=== PATIENT | male | born 1965 | race Caucasian/White ===

== ENCOUNTER 2017-02-21 08:58 | Day surgery (SDC) | payer MEDICARE ==
[~2017-02-21 08:58] MED LIST: 1/2 NORMAL SALINE 1,000 ML IV PRN; CEFAZOLIN 1 GM/D5W RTU 1 GM/50 ML RTUPB IV PRN; DIAZEPAM 5 MG TABLET PO PRN; OXYCODONE-ACETAMINOPHEN 5-325 MG TABLET PO PRN
[2017-02-21 09:26] LABS: HEMATOCRIT 46.6 % (37.9-51.0); HEMOGLOBIN 15.4 g/dL (13.5-17.0); HGB HCT DIFFERENCE -0.4; MEAN CORPUSCULAR HEMOGLOBIN 30.8 pg (27.0-33.4); MEAN CORPUSCULAR HGB CONC 33.1 g/dL (32.0-36.0); MEAN CORPUSCULAR VOLUME 93 fl (80-97); RED CELL DISTRIBUTION WIDTH 13.9 % (11.5-14.0); WHITE BLOOD COUNT 11.1 10^3/uL (4.0-10.5)
--- NOTE | 2017-02-21 10:03 | RADIOLOGY REPORT (SQ) ---
EXAM DESCRIPTION: CHEST SINGLE VIEW COMPLETED DATE/TIME: 02/21/2017 9:26 am REASON FOR STUDY: preop COMPARISON: None. EXAM PARAMETERS: NUMBER OF VIEWS: One view. TECHNIQUE: Single frontal radiographic view of the chest acquired. RADIATION DOSE: NA LIMITATIONS: None. FINDINGS: LUNGS AND PLEURA: No opacities, masses or pneumothorax. No pleural effusion. MEDIASTINUM AND HILAR STRUCTURES: No masses. Contour normal. HEART AND VASCULAR STRUCTURES: Heart normal in size. Normal vasculature. BONES: No acute findings. HARDWARE: None in the chest. OTHER: No other significant finding. IMPRESSION: NO ACUTE RADIOGRAPHIC FINDING IN THE CHEST. TECHNICAL DOCUMENTATION: JOB ID: [id number]
[2017-02-21 10:35] LABS: ANION GAP 11 (5-19); BLOOD UREA NITROGEN 24 mg/dL (7-20); CALCIUM 9.6 mg/dL (8.4-10.2); CARBON DIOXIDE 25 mmol/L (22-30); CHLORIDE 106 mmol/L (98-107); CREATININE RESULT 0.79 mg/dL (0.52-1.25); GLUCOSE 125 mg/dL (75-110); POTASSIUM 4.2 mmol/L (3.6-5.0); SODIUM 142.2 mmol/L (137-145)
[2017-02-21] MEDS ORDERED: LIDOCAINE 0.5% INJ-PF (5 MG/ML) 50 ML SDV ONE (11:07)
[2017-02-21] MEDS ORDERED: FENTANYL CITRATE INJ/PF 100 MCG/2 ML AMPUL ONE (11:08)
[2017-02-21] MEDS ORDERED: MIDAZOLAM 2 MG/2 ML INJ ONE (11:08)
[2017-02-21] MEDS ORDERED: BACITRACIN INJ 50,000 UNIT VIAL IR PRN ×2 (11:24→12:00)
--- NOTE | 2017-02-21 12:49 | PDOC DISCHARGE SUMMARY ---
Discharge Summary (SDC) - Discharge Final Diagnosis: Patient presents for insertion of a port. He needs frequent IV infusions because of his multiple medical problems including polyneuropathy which is with its attendant treatment. Date of Surgery: 02/21/17 Discharge Date: 02/21/17 Condition: Good Treatment or Instructions: 1. Discharge patient per ambulatory criteria. 2. Continue medications per medication reconciliation form. 3. Follow-up in office by appointment in about 1 week. 4. Dressings down to the office.. 5. Activities, diet, may remain as usual. Discharge Diet: As Tolerated Respiratory Treatments at Home: Deep Breathing/Coughing Discharge Activity: Activity As Tolerated
--- NOTE | 2017-02-21 12:53 | Operative Report ---
Operative Report DATE OF SURGERY: 02/21/17 PREOPERATIVE DIAGNOSIS: 1. Polyneuropathy. 2. Multiple comorbidities. POSTOPERATIVE DIAGNOSIS: 1. Polyneuropathy. Post insertion of Port-A-Cath. 2. Multiple comorbidities. OPERATION: 1 ultrasound evaluation of the right internal jugular vein. 2. Insertion of Port-A-Cath via real-time axis of the right internal jugular vein, under ultrasound guidance. 3. Angiogram interpretation. SURGEON: KARO GE [employer]OSPHORIC ACID OPERATOR: None ANESTHESIA: Moderate Sedation TISSUE REMOVED OR ALTERED: Not applicable. COMPLICATIONS: None ESTIMATED BLOOD LOSS: 5 mL. INTRAOPERATIVE FINDINGS: Satisfactory right internal jugular vein, estimated to be 1.5 cm in diameter. Satisfactory access. Satisfactory support of a Port-A- Cath. Tip of the catheter just done in the right atrium. Easy egress of blood and ingress of heparinized solution. PROCEDURE: After obtaining informed consent, the patient was taken to the lab and positioned supine. The [right] neck and chest were prepared with chlorhexidine and draped out with sterile linen. After the " universal timeout", in which it was verified that the patient continued to receive antibiotic, the procedure commenced. A steriley sheathed ultrasound probe was used to evaluate the [ right] internal jugular vein. Local anesthesia was infiltrated adjacent to the probe. Access into the [right] internal jugular vein was obtained using a micropuncture needle, followed by micropuncture wire and then a micropuncture catheter. This was followed by introduction of a 0.035 guidewire the tip of which was placed down into the inferior vena cava . The port sites was marked , locally anesthetized and incision made. Dissection now proceeded to the deep subcutaneous subcutaneous tissues so that a pocket for the port was made. Meticulous hemostasis was secured and the catheter was tunneled between the 2 incisions. Proximally, the catheter was now positioned using a peel-away sheath. Distally the catheter was tailored to an appropriate length and then mated to the port using the contained fixating device. The port was now placed in the pocket and the catheter optimally positioned. The port was accessed with a Oconnell needle and an angiogram done under digital subtraction. The findings as dictated. With adequate and satisfactory positioning, both lumens of the chamber were irrigated with heparinized solution. The wounds were now closed using interrupted 3-0 PDS to the subcutaneous tissues and a continuous subcuticular suture of 4-0 Monocryl to the skin. These are reinforced with Steri-Strips over benzoin and then dressings applied. Time: 1.3 Minute. Dose: 5.9 Mc torrez Contrast: 5 mls. Isovue 300. Copies of the dictated operative report for Dr. Karo Cartagena MD.
--- NOTE | 2017-02-21 13:22 | RADIOLOGY REPORT (SQ) ---
EXAM DESCRIPTION: CHEST SINGLE VIEW COMPLETED DATE/TIME: 02/21/2017 1:03 pm REASON FOR STUDY: s/p port placement COMPARISON: 02/21/2017. EXAM PARAMETERS: NUMBER OF VIEWS: One view. TECHNIQUE: Single frontal radiographic view of the chest acquired. RADIATION DOSE: NA LIMITATIONS: None. FINDINGS: LUNGS AND PLEURA: No opacities, masses or pneumothorax. No pleural effusion. MEDIASTINUM AND HILAR STRUCTURES: No masses. Contour normal. HEART AND VASCULAR STRUCTURES: Heart normal in size. Normal vasculature. BONES: No acute findings. HARDWARE: Vascular access port. Tip at the level of the superior vena cava. OTHER: No other significant finding. IMPRESSION: NO PNEUMOTHORAX OR OTHER SIGNIFICANT FINDINGS AFTER PORT PLACEMENT. TECHNICAL DOCUMENTATION: JOB ID: [id number]
[2017-02-21 13:53] VITALS: BP 113/71
--- NOTE | 2017-02-22 08:41 | RADIOLOGY REPORT (SQ) ---
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 TECHNIQUE: Intra-operative images acquired during surgical procedure to evaluate progress. NUMBER OF IMAGES: Cine fluoroscopic images. LIMITATIONS: None. FINDINGS: Intra procedural imaging and fluoro during placement of a central venous catheter. Please see the operative report for further details IMPRESSION: Intra procedural imaging and fluoro COMMENT: Quality ID [id number]: Final reports for procedures using fluoroscopy that document radiation exp osure indices, or exposure time and number of fluorographic images (if radiation exposure indices are not available) Please consult full operative report of the attending physician for description of the procedure. TECHNICAL DOCUMENTATION: JOB ID: [id number] [employer]- All Rights Reserved
== END 2017-02-21 13:40 | disposition home or self-care (01) ==
LOC: CCL 08:58
PROVIDERS: ATTEND Surgery
PROC: 05HM33Z Insertion of Infusion Device into Right Internal Jugular Vein, Percutaneous Approach (ICD-10-PCS; principal; 2017-02-21)
DX: G61.81 Chronic inflammatory demyelinating polyneuritis (principal); D75.1 Secondary polycythemia; E11.40 Type 2 diabetes mellitus with diabetic neuropathy, unspecified; M79.7 Fibromyalgia; F40.240 Claustrophobia; F41.9 Anxiety disorder, unspecified; F17.210 Nicotine dependence, cigarettes, uncomplicated; Z79.899 Other long term (current) drug therapy; Z79.84 Long term (current) use of oral hypoglycemic drugs
CPT/HCPCS: 36415; 85027; 80048; 36561; 76937; 77001; 71010; C1788; C1752; J2250; J3490 ×2; J0690; A9270 ×2; J3010; J1644

== ENCOUNTER 2017-02-22 07:54 | Outpatient (CLI) | payer MEDICARE ==
[~2017-02-22 07:54] MED LIST changes: -1/2 NORMAL SALINE 1,000 ML IV PRN; +ACETAMINOPHEN 325 MG TABLET PO PRN; -CEFAZOLIN 1 GM/D5W RTU 1 GM/50 ML RTUPB IV PRN; +DEXTROSE 5%-WATER 250 ML IV PRN; -DIAZEPAM 5 MG TABLET PO PRN; +DIPHENHYDRAMINE HCL 50 MG/ML VIAL IV PRN; +IMMUNE GLOB GAM CAPRYLATE IV PRN; -OXYCODONE-ACETAMINOPHEN 5-325 MG TABLET PO PRN; +[UNRECOGNIZED DRUG - OTHER] IV PRN
[2017-02-22 09:55] VITALS: BP 108/72
[2017-02-23] MEDS ORDERED: [UNRECOGNIZED DRUG - OTHER] IV PRN (05:00)
[2017-02-23] MEDS ORDERED: IMMUNE GLOB GAM CAPRYLATE IV PRN (05:00)
[2017-02-23] MEDS ORDERED: DEXTROSE 5%-WATER 250 ML IV PRN (05:00)
[2017-02-23] MEDS ORDERED: DIPHENHYDRAMINE HCL 50 MG/ML VIAL IV PRN (05:00)
[2017-02-23] MEDS ORDERED: ACETAMINOPHEN 325 MG TABLET PO PRN (05:00)
== END 2017-02-22 14:40 | disposition home or self-care (01) ==
LOC: II 07:54 → 5TH 08:00 → II 14:40
PROVIDERS: ATTEND Internal Medicine
PROC: 30233S1 Transfusion of Nonautologous Globulin into Peripheral Vein, Percutaneous Approach (ICD-10-PCS; principal; 2017-02-22)
DX: Z51.12 Encounter for antineoplastic immunotherapy (principal); G61.81 Chronic inflammatory demyelinating polyneuritis
CPT/HCPCS: 96365; 96366; 96374; 96360; J1561 ×2; A9270 ×2; J1200; 96361; 96375; J3490

== ENCOUNTER 2017-02-23 08:14 | Outpatient (CLI) | payer MEDICARE ==
[2017-02-23 08:43] VITALS: BP 126/75
== END 2017-02-23 13:17 | disposition home or self-care (01) ==
LOC: 5TH 08:14 → II 08:14
PROVIDERS: ATTEND Internal Medicine
PROC: 30233S1 Transfusion of Nonautologous Globulin into Peripheral Vein, Percutaneous Approach (ICD-10-PCS; principal; 2017-02-23)
DX: Z51.12 Encounter for antineoplastic immunotherapy (principal); G61.81 Chronic inflammatory demyelinating polyneuritis
CPT/HCPCS: 96365; 96366; 96374; J1561 ×2; A9270 ×2; J1200; 96375; J3490

== ENCOUNTER 2017-03-15 08:41 | Outpatient (CLI) | payer MEDICARE ==
[2017-03-15 09:48] VITALS: BP 122/76
== END 2017-03-15 14:26 | disposition home or self-care (01) ==
LOC: II 08:41 → 5TH 08:41 → II 14:26
PROVIDERS: ATTEND Internal Medicine
PROC: 30233S1 Transfusion of Nonautologous Globulin into Peripheral Vein, Percutaneous Approach (ICD-10-PCS; principal; 2017-03-15)
PROC: 3E033GC Introduction of Other Therapeutic Substance into Peripheral Vein, Percutaneous Approach (ICD-10-PCS; 2017-03-15)
DX: Z51.12 Encounter for antineoplastic immunotherapy (principal); G61.81 Chronic inflammatory demyelinating polyneuritis
CPT/HCPCS: 96365; 96366; 96375; J1561 ×2; A9270 ×2; J1200; 96367; J3490

== ENCOUNTER 2017-04-06 08:12 | Outpatient (CLI) | payer MEDICARE ==
[2017-04-06 08:49] VITALS: BP 107/79
== END 2017-04-06 13:07 | disposition home or self-care (01) ==
LOC: II 08:12 → 5TH 08:14 → II 13:07
PROVIDERS: ATTEND Internal Medicine
PROC: 30243S1 Transfusion of Nonautologous Globulin into Central Vein, Percutaneous Approach (ICD-10-PCS; principal; 2017-04-06)
PROC: 3E043GC Introduction of Other Therapeutic Substance into Central Vein, Percutaneous Approach (ICD-10-PCS; 2017-04-06)
DX: Z51.12 Encounter for antineoplastic immunotherapy (principal); G61.81 Chronic inflammatory demyelinating polyneuritis
CPT/HCPCS: 96367; 96375; J1561 ×2; J1200; A9270; 96365; 96366; J3490

== ENCOUNTER 2017-04-27 07:57 | Outpatient (CLI) | payer MEDICARE ==
[~2017-04-27 07:57] MED LIST changes: -IMMUNE GLOB GAM CAPRYLATE IV PRN; +IMMUNE GLOBULIN IV PRN; +[UNRECOGNIZED DRUG - OTHER] IV PRN; -[UNRECOGNIZED DRUG - OTHER] IV PRN
[2017-04-27 08:57] VITALS: BP 100/50
== END 2017-04-27 13:00 | disposition home or self-care (01) ==
LOC: II 07:57 → 5TH 07:58 → II 13:00
PROVIDERS: ATTEND Internal Medicine
PROC: 30243S1 Transfusion of Nonautologous Globulin into Central Vein, Percutaneous Approach (ICD-10-PCS; principal; 2017-04-27)
PROC: 3E043GC Introduction of Other Therapeutic Substance into Central Vein, Percutaneous Approach (ICD-10-PCS; 2017-04-27)
DX: Z51.12 Encounter for antineoplastic immunotherapy (principal); G61.81 Chronic inflammatory demyelinating polyneuritis
CPT/HCPCS: 96365; 96366; 96374; 96523; J1561 ×2; A9270 ×2; J1200; 96375; J3490

== ENCOUNTER 2017-06-08 07:54 | Outpatient (CLI) | payer MEDICARE ==
[~2017-06-08 07:54] MED LIST changes: +IMMUNE GLOB GAM CAPRYLATE IV PRN; -IMMUNE GLOBULIN IV PRN; +[UNRECOGNIZED DRUG - OTHER] IV PRN; -[UNRECOGNIZED DRUG - OTHER] IV PRN
[2017-06-08 08:45] VITALS: BP 101/75
== END 2017-06-08 13:17 | disposition home or self-care (01) ==
LOC: II 07:54 → 5TH 07:56 → II 13:17
PROVIDERS: ATTEND Internal Medicine
PROC: 30243S1 Transfusion of Nonautologous Globulin into Central Vein, Percutaneous Approach (ICD-10-PCS; principal; 2017-06-08)
PROC: 3E043GC Introduction of Other Therapeutic Substance into Central Vein, Percutaneous Approach (ICD-10-PCS; 2017-06-08)
DX: Z51.12 Encounter for antineoplastic immunotherapy (principal); G61.81 Chronic inflammatory demyelinating polyneuritis
CPT/HCPCS: 96367; 96375; J1561 ×2; A9270 ×2; J1200; 96365; 96366; J3490

== ENCOUNTER 2017-06-29 08:37 | Outpatient (CLI) | payer MEDICARE ==
[2017-06-29 09:05] VITALS: BP 118/71
== END 2017-06-29 13:04 | disposition home or self-care (01) ==
LOC: II 08:37 → 5TH 08:38 → II 13:04
PROVIDERS: ATTEND Internal Medicine
PROC: 30243S1 Transfusion of Nonautologous Globulin into Central Vein, Percutaneous Approach (ICD-10-PCS; principal; 2017-06-29)
PROC: 3E043GC Introduction of Other Therapeutic Substance into Central Vein, Percutaneous Approach (ICD-10-PCS; 2017-06-29)
DX: Z51.12 Encounter for antineoplastic immunotherapy (principal); G61.81 Chronic inflammatory demyelinating polyneuritis
CPT/HCPCS: 96365; 96366; 96375; J1561 ×2; A9270 ×2; J1200; 96374; 96523; J3490

== ENCOUNTER 2017-08-10 10:07 | Outpatient (CLI) | payer MEDICARE, OTHER ==
[2017-08-10 10:25] VITALS: BP 141/79
== END 2017-08-10 14:37 | disposition home or self-care (01) ==
LOC: II 10:07 → 5TH 10:23 → II 14:37
PROVIDERS: ATTEND Internal Medicine
PROC: 30243S1 Transfusion of Nonautologous Globulin into Central Vein, Percutaneous Approach (ICD-10-PCS; principal; 2017-08-10)
PROC: 3E043GC Introduction of Other Therapeutic Substance into Central Vein, Percutaneous Approach (ICD-10-PCS; 2017-08-10)
DX: Z51.12 Encounter for antineoplastic immunotherapy (principal); G61.81 Chronic inflammatory demyelinating polyneuritis
CPT/HCPCS: 96367; 96375; J1561 ×2; A9270 ×2; J1200; 96365; 96366; J3490

== ENCOUNTER 2017-08-31 08:55 | Outpatient (CLI) | payer MEDICARE, OTHER ==
[2017-08-31 09:24] VITALS: BP 120/61
== END 2017-08-31 13:28 | disposition home or self-care (01) ==
LOC: 5TH 08:55 → II 08:55
PROVIDERS: ATTEND Internal Medicine
PROC: 30243S1 Transfusion of Nonautologous Globulin into Central Vein, Percutaneous Approach (ICD-10-PCS; principal; 2017-08-31)
PROC: 3E043GC Introduction of Other Therapeutic Substance into Central Vein, Percutaneous Approach (ICD-10-PCS; 2017-08-31)
DX: Z51.12 Encounter for antineoplastic immunotherapy (principal); G61.81 Chronic inflammatory demyelinating polyneuritis
CPT/HCPCS: 96365; 96366; 96374; 96523; J1561 ×2; A9270 ×2; J1200; 96375; J3490

== ENCOUNTER 2017-09-21 08:34 | Outpatient (CLI) | payer MEDICARE, OTHER ==
[2017-09-21 09:27] VITALS: BP 110/64
== END 2017-09-21 14:15 | disposition home or self-care (01) ==
LOC: II 08:34 → 5TH 08:35 → II 14:15
PROVIDERS: ATTEND Internal Medicine
PROC: 30243S1 Transfusion of Nonautologous Globulin into Central Vein, Percutaneous Approach (ICD-10-PCS; principal; 2017-09-21)
PROC: 3E043GC Introduction of Other Therapeutic Substance into Central Vein, Percutaneous Approach (ICD-10-PCS; 2017-09-21)
DX: Z51.12 Encounter for antineoplastic immunotherapy (principal); G61.81 Chronic inflammatory demyelinating polyneuritis
CPT/HCPCS: 96365; 96366; 96375; J1561 ×2; A9270 ×2; J1200; 96367; J3490

== ENCOUNTER 2017-10-12 09:13 | Outpatient (CLI) | payer MEDICARE, OTHER ==
[2017-10-12 09:25] VITALS: BP 124/74
== END 2017-10-12 12:30 | disposition home or self-care (01) ==
LOC: II 09:13 → 5TH 09:16 → II 12:30
PROVIDERS: ATTEND Hospitalist
PROC: 30243S1 Transfusion of Nonautologous Globulin into Central Vein, Percutaneous Approach (ICD-10-PCS; principal; 2017-10-12)
PROC: 3E043GC Introduction of Other Therapeutic Substance into Central Vein, Percutaneous Approach (ICD-10-PCS; 2017-10-12)
DX: Z51.12 Encounter for antineoplastic immunotherapy (principal); G61.81 Chronic inflammatory demyelinating polyneuritis
CPT/HCPCS: 96365; 96366; 96375; J1561 ×2; A9270 ×2; J1200; 96374; J3490

== ENCOUNTER → 2017-10-16 | Outpatient (CLI) | payer MEDICARE, OTHER ==
--- NOTE | 2017-10-16 15:20 | RADIOLOGY REPORT (SQ) ---
EXAM DESCRIPTION: CT CERVICAL SPINE WITHOUT COMPLETED DATE/TIME: 10/16/2017 2:38 pm REASON FOR STUDY: CERVICALGIA (M54.2) M54.2 CERVICALGIA COMPARISON: None. TECHNIQUE: Axial images acquired through the cervical spine without intravenous contrast. Images re viewed with lung, soft tissue and bone windows. Reconstructed coronal and sagittal MPR images review ed. Images stored on PACS. All CT scanners at this facility use dose modulation, iterative reconstruction, and/or weight based d osing when appropriate to reduce radiation dose to as low as reasonably achievable (ALARA). [facility]: Dose Right [facility]: CareDose [facility]: Dose Right [facility]: Teradose 4D [facility]: [employer] - [employer] RADIATION DOSE: CT Rad equipment meets quality standard of care and radiation dose reduction techniq ues were employed. CTDIvol: 21.1 mGy. DLP: 540 mGy-cm. mGy. LIMITATIONS: None. FINDINGS: ALIGNMENT: Anatomic. MINERALIZATION: Normal. VERTEBRAL BODIES: No fractures or dislocation. DISCS: C5-6 disc space narrowing with small uncovertebral spurs. Mild uncovertebral spurring is also present at C4-5. Calcification along the posterior longitudinal ligament at C5 and C6. This mildly effaces the anterior canal. No critical central stenosis or high-grade foraminal narrowing evident. FACETS, LATERAL MASSES, POSTERIOR ELEMENTS: No fractures. No dislocation. No acute findings. HARDWARE: None in the spine. VISUALIZED RIBS: No fractures. LUNG APICES AND SOFT TISSUES: No significant or acute findings. OTHER: No other significant finding. IMPRESSION: Spondylosis as above. Prominent calcification along the posterior longitudinal ligament at C5-6 causing noncritical central canal narrowing. TECHNICAL DOCUMENTATION: JOB ID: [id number] Quality ID # [id number]: Final reports with documentation of one or more dose reduction techniques (e.g., Au tomated exposure control, adjustment of the mA and/or kV according to patient size, use of iterative reconstruction technique) 2010 [employer]- All Rights Reserved
== END ==
LOC: RAD 14:17
PROVIDERS: ATTEND Physician Assistant
DX: M54.2 Cervicalgia (principal); M48.02 Spinal stenosis, cervical region; M47.892 Other spondylosis, cervical region
CPT/HCPCS: 72125

== ENCOUNTER 2017-11-02 08:18 | Outpatient (CLI) | payer MEDICARE, MEDICAID ==
[2017-11-02 08:43] VITALS: BP 118/72
== END 2017-11-02 13:45 | disposition home or self-care (01) ==
LOC: II 08:18 → 5TH 08:19 → II 13:45
PROVIDERS: ATTEND Hospitalist
PROC: 30243S1 Transfusion of Nonautologous Globulin into Central Vein, Percutaneous Approach (ICD-10-PCS; principal; 2017-11-02)
PROC: 3E043GC Introduction of Other Therapeutic Substance into Central Vein, Percutaneous Approach (ICD-10-PCS; 2017-11-02)
DX: G61.81 Chronic inflammatory demyelinating polyneuritis (principal)
CPT/HCPCS: 96365; 96366; 96374; 96375; J1561 ×2; A9270 ×2; J1200; J3490

== ENCOUNTER 2017-11-23 09:05 | Outpatient (CLI) | payer MEDICAID, MEDICARE ==
[2017-11-23 10:23] VITALS: BP 100/50
== END 2017-11-23 14:33 | disposition home or self-care (01) ==
LOC: 5TH 09:05 → II 09:05
PROVIDERS: ATTEND Orthopaedic Surgery Sports Medicine
PROC: 30243S1 Transfusion of Nonautologous Globulin into Central Vein, Percutaneous Approach (ICD-10-PCS; principal; 2017-11-23)
PROC: 3E043GC Introduction of Other Therapeutic Substance into Central Vein, Percutaneous Approach (ICD-10-PCS; 2017-11-23)
DX: Z51.12 Encounter for antineoplastic immunotherapy (principal); G61.81 Chronic inflammatory demyelinating polyneuritis
CPT/HCPCS: 96365; 96366; 96374; 96375; J1561 ×2; A9270 ×2; J1200; J3490

== ENCOUNTER 2017-12-14 09:14 | Outpatient (CLI) | payer MEDICARE, OTHER ==
[2017-12-14 09:43] VITALS: BP 124/69
== END 2017-12-14 14:06 | disposition home or self-care (01) ==
LOC: II 09:14 → 5TH 09:16 → II 14:06
PROVIDERS: ATTEND Orthopaedic Surgery Sports Medicine
PROC: 30243S1 Transfusion of Nonautologous Globulin into Central Vein, Percutaneous Approach (ICD-10-PCS; principal; 2017-12-14)
PROC: 3E043GC Introduction of Other Therapeutic Substance into Central Vein, Percutaneous Approach (ICD-10-PCS; 2017-12-14)
DX: Z51.12 Encounter for antineoplastic immunotherapy (principal); G61.81 Chronic inflammatory demyelinating polyneuritis
CPT/HCPCS: 96367; 96375; J1561 ×2; A9270 ×2; J1200; 96365; 96366; J3490

== ENCOUNTER 2018-01-04 08:44 | Outpatient (CLI) | payer MEDICARE, OTHER ==
[~2018-01-04 08:44] MED LIST changes: +DIPHENHYDRAMINE HCL 50 MG CAPSULE PO PRN
[2018-01-04 09:16] VITALS: BP 122/69
== END 2018-01-04 13:01 | disposition home or self-care (01) ==
LOC: II 08:44 → 5TH 08:46 → II 13:01
PROVIDERS: ATTEND Orthopaedic Surgery Sports Medicine
PROC: 30243S1 Transfusion of Nonautologous Globulin into Central Vein, Percutaneous Approach (ICD-10-PCS; principal; 2018-01-04)
PROC: 3E043GC Introduction of Other Therapeutic Substance into Central Vein, Percutaneous Approach (ICD-10-PCS; 2018-01-04)
DX: Z51.12 Encounter for antineoplastic immunotherapy (principal); G61.81 Chronic inflammatory demyelinating polyneuritis
CPT/HCPCS: 96413; 96415; 96374; 96375; 96417; J1561 ×2; A9270 ×2; J1200; 96365; 96366; J3490

== ENCOUNTER 2018-01-25 09:20 | Outpatient (CLI) | payer MEDICARE, OTHER ==
[~2018-01-25 09:20] MED LIST changes: -DIPHENHYDRAMINE HCL 50 MG CAPSULE PO PRN
[2018-01-25 09:48] VITALS: BP 125/73
== END 2018-01-25 13:20 | disposition home or self-care (01) ==
LOC: II 09:20 → 5TH 09:29 → II 13:20
PROVIDERS: ATTEND Hospitalist
PROC: 30243S1 Transfusion of Nonautologous Globulin into Central Vein, Percutaneous Approach (ICD-10-PCS; principal; 2018-01-25)
PROC: 3E043GC Introduction of Other Therapeutic Substance into Central Vein, Percutaneous Approach (ICD-10-PCS; 2018-01-25)
DX: Z51.12 Encounter for antineoplastic immunotherapy (principal); G61.81 Chronic inflammatory demyelinating polyneuritis
CPT/HCPCS: 96367; 96375; J1561 ×2; A9270 ×2; J1200; 96365; 96366; J3490

== ENCOUNTER 2018-02-15 09:21 | Outpatient (CLI) | payer MEDICARE, MEDICAID ==
[2018-02-15 09:37] VITALS: BP 114/52
== END 2018-02-15 13:32 | disposition home or self-care (01) ==
LOC: II 09:21 → 5TH 09:23 → II 13:32
PROVIDERS: ATTEND Hospitalist
PROC: 30243S1 Transfusion of Nonautologous Globulin into Central Vein, Percutaneous Approach (ICD-10-PCS; principal; 2018-02-15)
PROC: 3E043GC Introduction of Other Therapeutic Substance into Central Vein, Percutaneous Approach (ICD-10-PCS; 2018-02-15)
DX: Z51.12 Encounter for antineoplastic immunotherapy (principal); G61.81 Chronic inflammatory demyelinating polyneuritis
CPT/HCPCS: 96365; 96366; 96374; J1561 ×2; A9270 ×2; J1200; 96372; 96375; J3490

== ENCOUNTER 2018-03-08 09:54 | Outpatient (CLI) | payer MEDICARE, MEDICAID ==
[2018-03-08 11:01] VITALS: BP 137/92
== END 2018-03-08 14:06 | disposition home or self-care (01) ==
LOC: II 09:54 → 5TH 10:13 → II 14:06
PROVIDERS: ATTEND Internal Medicine
PROC: 30243S1 Transfusion of Nonautologous Globulin into Central Vein, Percutaneous Approach (ICD-10-PCS; principal; 2018-03-08)
PROC: 3E043GC Introduction of Other Therapeutic Substance into Central Vein, Percutaneous Approach (ICD-10-PCS; 2018-03-08)
DX: G61.81 Chronic inflammatory demyelinating polyneuritis (principal)
CPT/HCPCS: 96367; 96375; J1561 ×2; A9270 ×2; J1200; 96365; 96366; J3490

== ENCOUNTER 2018-03-29 08:28 | Outpatient (CLI) | payer MEDICARE, MEDICAID ==
[2018-03-29 09:30] VITALS: BP 136/79
== END 2018-03-29 12:27 | disposition home or self-care (01) ==
LOC: II 08:28 → 5TH 08:33 → II 12:27
PROVIDERS: ATTEND Internal Medicine
PROC: 30243S1 Transfusion of Nonautologous Globulin into Central Vein, Percutaneous Approach (ICD-10-PCS; principal; 2018-03-29)
PROC: 3E043GC Introduction of Other Therapeutic Substance into Central Vein, Percutaneous Approach (ICD-10-PCS; 2018-03-29)
DX: Z51.12 Encounter for antineoplastic immunotherapy (principal); G61.81 Chronic inflammatory demyelinating polyneuritis
CPT/HCPCS: 96365; 96366; 96375; J1561 ×2; A9270 ×2; J1200; 96367; J3490

== ENCOUNTER 2018-04-19 08:21 | Outpatient (CLI) | payer MEDICARE, MEDICAID ==
[2018-04-19 08:53] VITALS: BP 138/75
== END 2018-04-19 12:27 | disposition home or self-care (01) ==
LOC: II 08:21 → 5TH 08:24 → II 12:27
PROVIDERS: ATTEND Internal Medicine
PROC: 30243S1 Transfusion of Nonautologous Globulin into Central Vein, Percutaneous Approach (ICD-10-PCS; principal; 2018-04-19)
PROC: 3E043GC Introduction of Other Therapeutic Substance into Central Vein, Percutaneous Approach (ICD-10-PCS; 2018-04-19)
DX: Z51.12 Encounter for antineoplastic immunotherapy (principal); G61.81 Chronic inflammatory demyelinating polyneuritis
CPT/HCPCS: 96365; 96366; 96375; J1561 ×2; A9270 ×2; J1200; 96367; J3490

== ENCOUNTER 2018-05-10 09:07 | Outpatient (CLI) | payer MEDICARE, MEDICAID ==
[2018-05-10 10:56] VITALS: BP 117/70
== END 2018-05-10 13:33 | disposition home or self-care (01) ==
LOC: 5TH 09:07 → II 09:07
PROVIDERS: ATTEND Internal Medicine
PROC: 30243S1 Transfusion of Nonautologous Globulin into Central Vein, Percutaneous Approach (ICD-10-PCS; principal; 2018-05-10)
PROC: 3E033GC Introduction of Other Therapeutic Substance into Peripheral Vein, Percutaneous Approach (ICD-10-PCS; 2018-05-10)
DX: Z51.12 Encounter for antineoplastic immunotherapy (principal); G61.81 Chronic inflammatory demyelinating polyneuritis
CPT/HCPCS: 96413; 96415; 96374; 96375; 96417; J1561 ×2; A9270 ×2; J1200; 96365; 96366; J3490

== ENCOUNTER 2018-06-18 07:59 | Outpatient (CLI) | payer MEDICARE, MEDICAID ==
[~2018-06-18 07:59] MED LIST changes: +DIPHENHYDRAMINE HCL 50 MG CAPSULE PO PRN
[2018-06-18 09:42] VITALS: BP 114/64
== END 2018-06-18 13:35 | disposition home or self-care (01) ==
LOC: II 07:59 → 5TH 08:04 → II 13:35
PROVIDERS: ATTEND Internal Medicine
PROC: 30243S1 Transfusion of Nonautologous Globulin into Central Vein, Percutaneous Approach (ICD-10-PCS; principal; 2018-06-18)
PROC: 3E043GC Introduction of Other Therapeutic Substance into Central Vein, Percutaneous Approach (ICD-10-PCS; 2018-06-18)
DX: Z51.12 Encounter for antineoplastic immunotherapy (principal); G61.81 Chronic inflammatory demyelinating polyneuritis
CPT/HCPCS: 96367; 96375; J1561 ×2; A9270 ×2; J1200; 96365; 96366; J3490

== ENCOUNTER 2018-07-09 08:39 | Outpatient (CLI) | payer MEDICARE, MEDICAID ==
[~2018-07-09 08:39] MED LIST changes: -DIPHENHYDRAMINE HCL 50 MG CAPSULE PO PRN
[2018-07-09 08:57] VITALS: BP 117/68
[2018-07-09 09:48] LABS: HEMATOCRIT 45.7 % (37.9-51.0); HEMOGLOBIN 15.6 g/dL (13.5-17.0); MEAN CORPUSCULAR HEMOGLOBIN 31.1 pg (27.0-33.4); MEAN CORPUSCULAR HGB CONC 34.2 g/dL (32.0-36.0); MEAN CORPUSCULAR VOLUME 91 fl (80-97); PLATELET COUNT 292 10^3/uL (150-450); RED BLOOD COUNT 5.03 10^6/uL (4.35-5.55); RED CELL DISTRIBUTION WIDTH 14.3 % (11.5-14.0); WHITE BLOOD COUNT 10.2 10^3/uL (4.0-10.5)
[2018-07-09 10:23] LABS: ABSOLUTE LYMPHOCYTES# (MANUAL) 3.6 10^3/uL (0.5-4.7); ABSOLUTE MONOCYTES # (MANUAL) 0.5 10^3/uL (0.1-1.4); ABSOLUTE NEUTROPHILS# (MANUAL) 5.5 10^3/uL (1.7-8.2); BASOPHILS % (MANUAL) 1 % (0-2); EOSINOPHILS % (MANUAL) 5 % (0-6); LYMPHOCYTES % (MANUAL) 28 % (13-45); MONOCYTES % (MANUAL) 5 % (3-13); NUCLEATED RED BLOOD CELLS 1 /100 WBC (0); PLATELET COMMENT ADEQUATE; POLYCHROMASIA SLIGHT; SEGMENTED NEUTROPHILS % (MAN) 54 % (42-78); TOTAL CELLS COUNTED 100
== END 2018-07-09 13:25 | disposition home or self-care (01) ==
LOC: II 08:39 → 5TH 08:47 → II 13:25
PROVIDERS: ATTEND Internal Medicine
PROC: 30243S1 Transfusion of Nonautologous Globulin into Central Vein, Percutaneous Approach (ICD-10-PCS; principal; 2018-07-09)
PROC: 3E043GC Introduction of Other Therapeutic Substance into Central Vein, Percutaneous Approach (ICD-10-PCS; 2018-07-09)
DX: Z51.12 Encounter for antineoplastic immunotherapy (principal); G61.81 Chronic inflammatory demyelinating polyneuritis
CPT/HCPCS: 36415; 85025; 96365; 96366; J1561 ×2; A9270 ×2; J1200; 96367; J3490

== ENCOUNTER 2018-07-30 10:15 | Outpatient (CLI) | payer MEDICARE, MEDICAID ==
[~2018-07-30 10:15] MED LIST changes: +DIPHENHYDRAMINE HCL 50 MG in NORMAL SALINE 50 ML IV PRN; -DIPHENHYDRAMINE HCL 50 MG/ML VIAL IV PRN
[2018-07-30 11:00] LABS: ABSOLUTE BASOPHILS # (AUTO) 0.1 10^3/uL (0.0-0.2); ABSOLUTE EOSINOPHILS # (AUTO) 0.4 10^3/uL (0.0-0.6); ABSOLUTE LYMPHOCYTES (AUTO) 5.2 10^3/uL (0.5-4.7); ABSOLUTE MONOCYTES (AUTO) 1.2 10^3/uL (0.1-1.4); ABSOLUTE NEUT (AUTO) 2.7 10^3/uL (1.7-8.2); BASOPHILS % (AUTO) 1.5 % (0-2); HEMATOCRIT 46.6 % (37.9-51.0); HEMOGLOBIN 16.1 g/dL (13.5-17.0); LYMPHOCYTES % (AUTO) 54.5 % (13-45); MEAN CORPUSCULAR HEMOGLOBIN 31.6 pg (27.0-33.4); MEAN CORPUSCULAR HGB CONC 34.5 g/dL (32.0-36.0); MEAN CORPUSCULAR VOLUME 92 fl (80-97); MONOCYTES % (AUTO) 12.1 % (3-13); PLATELET COUNT 277 10^3/uL (150-450); RED BLOOD COUNT 5.09 10^6/uL (4.35-5.55); RED CELL DISTRIBUTION WIDTH 13.9 % (11.5-14.0); SEGMENTED NEUTROPHILS % (AUTO) 27.9 % (42-78); TOTAL CELLS COUNTED % (AUTO) 100 %; WHITE BLOOD COUNT 9.5 10^3/uL (4.0-10.5)
[2018-07-30 11:03] LABS: ALANINE AMINOTRANSFERASE 13 U/L (21-72); ALKALINE PHOSPHATASE 128 U/L (38-126); ANION GAP 12 (5-19); ASPARTATE AMINO TRANSFERASE 11 U/L (17-59); BILIRUBIN,DIRECT 0.3 mg/dL (0.0-0.4); BILIRUBIN,TOTAL 0.4 mg/dL (0.2-1.3); BLOOD UREA NITROGEN 14 mg/dL (7-20); CALCIUM 9.7 mg/dL (8.4-10.2); CARBON DIOXIDE 30 mmol/L (22-30); CHLORIDE 102 mmol/L (98-107); GLUCOSE 154 mg/dL (75-110); POTASSIUM 4.6 mmol/L (3.6-5.0); SODIUM 143.5 mmol/L (137-145)
[2018-07-30 11:23] VITALS: BP 115/73
== END 2018-07-30 14:24 | disposition home or self-care (01) ==
LOC: II 10:15 → 5TH 10:17 → II 14:24
PROVIDERS: ATTEND Internal Medicine
PROC: 30243S1 Transfusion of Nonautologous Globulin into Central Vein, Percutaneous Approach (ICD-10-PCS; principal; 2018-07-30)
PROC: 3E043GC Introduction of Other Therapeutic Substance into Central Vein, Percutaneous Approach (ICD-10-PCS; 2018-07-30)
DX: Z51.12 Encounter for antineoplastic immunotherapy (principal); G61.81 Chronic inflammatory demyelinating polyneuritis
CPT/HCPCS: 36415; 85025; 80053; 96365; 96366; 96374; 96360; J1561 ×2; A9270 ×2; J1200; 96367; J3490

== ENCOUNTER 2018-08-20 08:39 | Outpatient (CLI) | payer MEDICARE, MEDICAID ==
[~2018-08-20 08:39] MED LIST changes: -IMMUNE GLOB GAM CAPRYLATE IV PRN; +IMMUNE GLOBULIN IV PRN; +[UNRECOGNIZED DRUG - OTHER] IV PRN; -[UNRECOGNIZED DRUG - OTHER] IV PRN
[2018-08-20 10:01] LABS: ABSOLUTE BASOPHILS # (AUTO) 0.1 10^3/uL (0.0-0.2); ABSOLUTE EOSINOPHILS # (AUTO) 0.3 10^3/uL (0.0-0.6); ABSOLUTE LYMPHOCYTES (AUTO) 4.4 10^3/uL (0.5-4.7); ABSOLUTE MONOCYTES (AUTO) 1.3 10^3/uL (0.1-1.4); ABSOLUTE NEUT (AUTO) 5.5 10^3/uL (1.7-8.2); BASOPHILS % (AUTO) 1.3 % (0-2); EOSINOPHILS % (AUTO) 2.4 % (0-6); HEMATOCRIT 44.6 % (37.9-51.0); HEMOGLOBIN 14.8 g/dL (13.5-17.0); LYMPHOCYTES % (AUTO) 38.1 % (13-45); MEAN CORPUSCULAR HEMOGLOBIN 30.4 pg (27.0-33.4); MEAN CORPUSCULAR HGB CONC 33.1 g/dL (32.0-36.0); MEAN CORPUSCULAR VOLUME 92 fl (80-97); MONOCYTES % (AUTO) 10.9 % (3-13); PLATELET COUNT 264 10^3/uL (150-450); RED BLOOD COUNT 4.86 10^6/uL (4.35-5.55); RED CELL DISTRIBUTION WIDTH 14.4 % (11.5-14.0); SEGMENTED NEUTROPHILS % (AUTO) 47.3 % (42-78); TOTAL CELLS COUNTED % (AUTO) 100 %; WHITE BLOOD COUNT 11.5 10^3/uL (4.0-10.5)
[2018-08-20 10:06] VITALS: BP 100/42
[2018-08-20 10:29] LABS: ALANINE AMINOTRANSFERASE 13 U/L (21-72); ALBUMIN 3.7 g/dL (3.5-5.0); ALKALINE PHOSPHATASE 143 U/L (38-126); ANION GAP 13 (5-19); ASPARTATE AMINO TRANSFERASE 11 U/L (17-59); BILIRUBIN,DIRECT 0.2 mg/dL (0.0-0.4); BILIRUBIN,TOTAL 0.2 mg/dL (0.2-1.3); BLOOD UREA NITROGEN 17 mg/dL (7-20); CALCIUM 9.7 mg/dL (8.4-10.2); CARBON DIOXIDE 28 mmol/L (22-30); CHLORIDE 100 mmol/L (98-107); GLUCOSE 308 mg/dL (75-110); POTASSIUM 4.9 mmol/L (3.6-5.0); SODIUM 141.1 mmol/L (137-145); TOTAL PROTEIN 6.5 g/dL (6.3-8.2)
== END 2018-08-20 13:25 | disposition home or self-care (01) ==
LOC: II 08:39 → 5TH 08:42 → II 13:25
PROVIDERS: ATTEND Internal Medicine
PROC: 30243S1 Transfusion of Nonautologous Globulin into Central Vein, Percutaneous Approach (ICD-10-PCS; principal; 2018-08-20)
PROC: 3E043GC Introduction of Other Therapeutic Substance into Central Vein, Percutaneous Approach (ICD-10-PCS; 2018-08-20)
DX: Z51.12 Encounter for antineoplastic immunotherapy (principal); G61.81 Chronic inflammatory demyelinating polyneuritis
CPT/HCPCS: 36415; 85025; 80053; 96413; 96415; 96374; 96375; 96417; J1561 ×2; A9270 ×2; J1200; 96365; 96366; 96367; J3490

== ENCOUNTER 2018-09-10 09:02 | Outpatient (CLI) | payer MEDICARE, MEDICAID ==
[~2018-09-10 09:02] MED LIST changes: +DIPHENHYDRAMINE HCL 50 MG in NORMAL SALINE 50 ML INJ PRN; -DIPHENHYDRAMINE HCL 50 MG in NORMAL SALINE 50 ML IV PRN; +IMMUNE GLOB GAM CAPRYLATE IV PRN; -IMMUNE GLOBULIN IV PRN; +[UNRECOGNIZED DRUG - OTHER] IV PRN; -[UNRECOGNIZED DRUG - OTHER] IV PRN
[2018-09-10 09:26] VITALS: BP 103/61
== END 2018-09-10 13:47 | disposition home or self-care (01) ==
LOC: II 09:02 → 5TH 09:03 → II 13:47
PROVIDERS: ATTEND Internal Medicine
PROC: 30243S1 Transfusion of Nonautologous Globulin into Central Vein, Percutaneous Approach (ICD-10-PCS; principal; 2018-09-10)
PROC: 3E043GC Introduction of Other Therapeutic Substance into Central Vein, Percutaneous Approach (ICD-10-PCS; 2018-09-10)
DX: Z51.12 Encounter for antineoplastic immunotherapy (principal); G61.81 Chronic inflammatory demyelinating polyneuritis
CPT/HCPCS: 96367; J1561 ×4; A9270 ×2; J1200; 96365; 96366; J3490

== ENCOUNTER 2018-10-01 08:56 | Outpatient (CLI) | payer MEDICARE, MEDICAID ==
[~2018-10-01 08:56] MED LIST changes: -DIPHENHYDRAMINE HCL 50 MG in NORMAL SALINE 50 ML INJ PRN; +DIPHENHYDRAMINE HCL 50 MG in NORMAL SALINE 50 ML IV PRN
[2018-10-01 09:20] VITALS: BP 112/71
[2018-10-01 10:32] LABS: ABSOLUTE BASOPHILS # (AUTO) 0.1 10^3/uL (0.0-0.2); ABSOLUTE EOSINOPHILS # (AUTO) 0.2 10^3/uL (0.0-0.6); ABSOLUTE LYMPHOCYTES (AUTO) 4.3 10^3/uL (0.5-4.7); ABSOLUTE MONOCYTES (AUTO) 0.9 10^3/uL (0.1-1.4); ABSOLUTE NEUT (AUTO) 4.5 10^3/uL (1.7-8.2); EOSINOPHILS % (AUTO) 2.4 % (0-6); HEMATOCRIT 40.3 % (37.9-51.0); HEMOGLOBIN 13.6 g/dL (13.5-17.0); LYMPHOCYTES % (AUTO) 42.9 % (13-45); MEAN CORPUSCULAR HEMOGLOBIN 30.9 pg (27.0-33.4); MEAN CORPUSCULAR HGB CONC 33.6 g/dL (32.0-36.0); MEAN CORPUSCULAR VOLUME 92 fl (80-97); MONOCYTES % (AUTO) 9.4 % (3-13); PLATELET COUNT 255 10^3/uL (150-450); RED BLOOD COUNT 4.39 10^6/uL (4.35-5.55); RED CELL DISTRIBUTION WIDTH 14.7 % (11.5-14.0); SEGMENTED NEUTROPHILS % (AUTO) 44.3 % (42-78); TOTAL CELLS COUNTED % (AUTO) 100 %; WHITE BLOOD COUNT 10.1 10^3/uL (4.0-10.5)
[2018-10-01 10:57] LABS: ALANINE AMINOTRANSFERASE 8 U/L (21-72); ALBUMIN 3.5 g/dL (3.5-5.0); ALKALINE PHOSPHATASE 97 U/L (38-126); ANION GAP 9 (5-19); ASPARTATE AMINO TRANSFERASE 15 U/L (17-59); BILIRUBIN,DIRECT 0.2 mg/dL (0.0-0.4); BILIRUBIN,TOTAL 0.2 mg/dL (0.2-1.3); BLOOD UREA NITROGEN 17 mg/dL (7-20); CALCIUM 9.1 mg/dL (8.4-10.2); CARBON DIOXIDE 26 mmol/L (22-30); CHLORIDE 103 mmol/L (98-107); GLUCOSE 311 mg/dL (75-110); POTASSIUM 4.6 mmol/L (3.6-5.0); SODIUM 137.6 mmol/L (137-145); TOTAL PROTEIN 6.2 g/dL (6.3-8.2)
== END 2018-10-01 14:38 | disposition home or self-care (01) ==
LOC: II 08:56 → 5TH 08:58 → II 14:38
PROVIDERS: ATTEND Orthopaedic Surgery Sports Medicine
PROC: 30243S1 Transfusion of Nonautologous Globulin into Central Vein, Percutaneous Approach (ICD-10-PCS; principal; 2018-10-01)
PROC: 3E043GC Introduction of Other Therapeutic Substance into Central Vein, Percutaneous Approach (ICD-10-PCS; 2018-10-01)
DX: Z51.12 Encounter for antineoplastic immunotherapy (principal); G61.81 Chronic inflammatory demyelinating polyneuritis
CPT/HCPCS: 36415; 85025; 80053; 96367; J1561 ×4; A9270 ×2; J1200; 96365; 96366; J3490

== ENCOUNTER 2018-10-23 08:40 | Outpatient (CLI) | payer MEDICARE, MEDICAID ==
[~2018-10-23 08:40] MED LIST changes: +[UNRECOGNIZED DRUG - OTHER] IV PRN; -[UNRECOGNIZED DRUG - OTHER] IV PRN
[2018-10-23 09:17] VITALS: BP 106/52
[2018-10-23 14:58] LABS: ABSOLUTE BASOPHILS # (AUTO) 0.1 10^3/uL (0.0-0.2); ABSOLUTE EOSINOPHILS # (AUTO) 0.3 10^3/uL (0.0-0.6); ABSOLUTE LYMPHOCYTES (AUTO) 2.6 10^3/uL (0.5-4.7); ABSOLUTE MONOCYTES (AUTO) 0.8 10^3/uL (0.1-1.4); ABSOLUTE NEUT (AUTO) 4.1 10^3/uL (1.7-8.2); BASOPHILS % (AUTO) 0.7 % (0-2); EOSINOPHILS % (AUTO) 3.6 % (0-6); HEMATOCRIT 38.3 % (37.9-51.0); HEMOGLOBIN 12.8 g/dL (13.5-17.0); LYMPHOCYTES % (AUTO) 33.3 % (13-45); MEAN CORPUSCULAR HEMOGLOBIN 30.7 pg (27.0-33.4); MEAN CORPUSCULAR HGB CONC 33.5 g/dL (32.0-36.0); MEAN CORPUSCULAR VOLUME 92 fl (80-97); MONOCYTES % (AUTO) 10.8 % (3-13); PLATELET COUNT 195 10^3/uL (150-450); RED BLOOD COUNT 4.17 10^6/uL (4.35-5.55); RED CELL DISTRIBUTION WIDTH 14.4 % (11.5-14.0); SEGMENTED NEUTROPHILS % (AUTO) 51.6 % (42-78); TOTAL CELLS COUNTED % (AUTO) 100 %; WHITE BLOOD COUNT 7.9 10^3/uL (4.0-10.5)
[2018-10-23 15:13] LABS: ALANINE AMINOTRANSFERASE 18 U/L (21-72); ALBUMIN 3.7 g/dL (3.5-5.0); ALKALINE PHOSPHATASE 117 U/L (38-126); ANION GAP 5 (5-19); ASPARTATE AMINO TRANSFERASE 13 U/L (17-59); BILIRUBIN,DIRECT 0.2 mg/dL (0.0-0.4); BILIRUBIN,TOTAL 0.3 mg/dL (0.2-1.3); BLOOD UREA NITROGEN 13 mg/dL (7-20); CALCIUM 8.7 mg/dL (8.4-10.2); CARBON DIOXIDE 28 mmol/L (22-30); CHLORIDE 103 mmol/L (98-107); GLUCOSE 277 mg/dL (75-110); POTASSIUM 4.6 mmol/L (3.6-5.0); SODIUM 136.3 mmol/L (137-145); TOTAL PROTEIN 8.1 g/dL (6.3-8.2)
== END 2018-10-23 14:44 | disposition home or self-care (01) ==
LOC: II 08:40 → 5TH 08:43 → II 14:44
PROVIDERS: ATTEND Hospitalist
PROC: 30243S1 Transfusion of Nonautologous Globulin into Central Vein, Percutaneous Approach (ICD-10-PCS; principal; 2018-10-23)
PROC: 3E043GC Introduction of Other Therapeutic Substance into Central Vein, Percutaneous Approach (ICD-10-PCS; 2018-10-23)
DX: Z51.12 Encounter for antineoplastic immunotherapy (principal); G61.81 Chronic inflammatory demyelinating polyneuritis
CPT/HCPCS: 36415; 85025; 80053; 96413; 96415; 96374; 96375; 96417; J1561 ×4; A9270 ×2; J1200; 96365; 96366; J3490

== ENCOUNTER 2019-01-01 08:56 | Outpatient (CLI) | payer MEDICARE, MEDICAID ==
[~2019-01-01 08:56] MED LIST changes: +[UNRECOGNIZED DRUG - OTHER] IV PRN; -[UNRECOGNIZED DRUG - OTHER] IV PRN
[2019-01-01 09:41] VITALS: BP 112/52
== END 2019-01-01 13:24 | disposition home or self-care (01) ==
LOC: II 08:56 → 5TH 09:01 → II 13:24
PROVIDERS: ATTEND Hospitalist
PROC: 30243S1 Transfusion of Nonautologous Globulin into Central Vein, Percutaneous Approach (ICD-10-PCS; principal; 2019-01-01)
PROC: 3E043GC Introduction of Other Therapeutic Substance into Central Vein, Percutaneous Approach (ICD-10-PCS; 2019-01-01)
DX: Z51.12 Encounter for antineoplastic immunotherapy (principal); G61.81 Chronic inflammatory demyelinating polyneuritis
CPT/HCPCS: 96365; 96366; 96367; J1561 ×3; A9270 ×2; J1200; 96375; J3490